=== PATIENT | male | born 1975 | race Caucasian/White ===

== ENCOUNTER → 2019-09-23 | Outpatient (CLI) | payer OTHER ==
[~2019-09-23] MED LIST: ATORVASTATIN CA40 MG PO; BRILINTA90 MG PO; CARVEDILOL3.125 MG PO; CHILDREN'S ASPI81 M1 PO; COLESTIPOL HCL1 G1 PO; COREG3.125 MG PO; EFFIENT10 MG PO; LISINOPRIL5 MG PO; NITROGLYCERIN0.4 MG SUBLING; OMEPRAZOLE40 MG PO; ZOFRAN ODT4 MG PO
== END ==
LOC: SJCVCIMAG 09-11 15:31
DX: I35.8 Other nonrheumatic aortic valve disorders (principal); I27.20 Pulmonary hypertension, unspecified; I11.9 Hypertensive heart disease without heart failure; I25.10 Atherosclerotic heart disease of native coronary artery without angina pectoris; I25.2 Old myocardial infarction; Z72.0 Tobacco use; Z95.5 Presence of coronary angioplasty implant and graft

== ENCOUNTER → 2020-08-22 | Outpatient (CLI) | payer OTHER | LOC: SJCVCIMAG 08-08 10:17 | PROVIDERS: ATTEND Internal Medicine Cardiovascular Disease | DX: Z01.818 Encounter for other preprocedural examination (principal); I25.10 Atherosclerotic heart disease of native coronary artery without angina pectoris; M79.89 Other specified soft tissue disorders; M79.661 Pain in right lower leg; M79.662 Pain in left lower leg; E78.5 Hyperlipidemia, unspecified; I10 Essential (primary) hypertension; E66.9 Obesity, unspecified; F17.200 Nicotine dependence, unspecified, uncomplicated; Z79.899 Other long term (current) drug therapy ==

== ENCOUNTER → 2020-11-11 | Outpatient (CLI) | payer OTHER ==
[~2020-11-11] MED LIST changes: +CARVEDILOL6.25 M1 PO; +CLOPIDOGREL75 MG PO; +LISINOPRIL10 MG PO
== END ==
LOC: LAB 10:19
PROVIDERS: ATTEND Surgery
DX: Z01.812 Encounter for preprocedural laboratory examination (principal); Z20.822 Contact with and (suspected) exposure to COVID-19

== ENCOUNTER 2020-11-16 06:11 | Day surgery (SDC) | payer OTHER ==
[~2020-11-16] VITALS: Ht 177.8 cm; Wt 157.4 kg
--- NOTE | ~2020-11-16 | O ---
[facility] [place] [address] OPERATIVE REPORT Name: SHERI TEIXEIRA Room #: 150-2 [facility].#: [id number] Admission: 11/16/20 Attend Phys: Ryan Feldman MD Discharge: Date of : 79 Report #: [id number] THIS REPORT FOR: cc: Griffin Cisneros,Ryan Marquis MD ~ DATE OF SERVICE: 11/16/2020 PREOPERATIVE DIAGNOSIS: Umbilical hernia. POSTOPERATIVE DIAGNOSIS: Umbilical hernia. OPERATIVE PROCEDURE DONE: Laparoscopic repair of umbilical hernia with mesh. OPERATING SURGEON: Dr. Ryan Feldman. 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 INDICATIONS FOR THE PROCEDURE: The patient is a 45-year-old male who presented with complaints of swelling in the umbilical region. Clinically, was noted to have a reducible umbilical hernia. The patient was advised laparoscopic repair of the same. DESCRIPTION OF PROCEDURE: After explaining to the patient in detail and informed consent was obtained, the patient was identified in the preoperative holding area. The patient was transferred to the operating room and was placed in supine position. Sequential compressive devices were placed for DVT prophylaxis. Preoperative antibiotics were given. After induction of anesthesia, the abdomen was prepped and draped in a sterile fashion through a left upper quadrant 1 cm incision and using Optiview technique, peritoneal cavity was entered and pneumoperitoneum was created. Thereafter, under direct vision, another 10 mm trocar was placed in the left flank and another 5 mm trocar was placed in the left lower quadrant region. On initial inspection, the patient was noted to have a small 2 cm sized umbilical hernia with omentum within its content. I gently reduced the omentum from the hernial cavity. I then dissected off the preperitoneal fat from the surrounding region. This fat was then subsequently retrieved with an EndoCatch. I then placed a 9 cm Symbotex mesh. This was initially hydrated and the [place]-Efe suture was placed in the center of the mesh and the adherent surface. Mesh was then introduced into the abdominal cavity. Mesh was then anchored onto the hernial site approximating the hernial defect measured then tacked circumferentially at 1 cm intervals using SecureStrap. Once this was completed, I noted that one of the left lateral edge was very close just had only 2 cm overlap. Therefore, I used another 12 cm sized Symbotex mesh, placed a suture in the middle on the adherent surface. The mesh was then hydrated and was introduced into the abdominal [address] [address] OPERATIVE REPORT Name: TEIXEIRASHERI Room #: 150-2 [facility]..#: [id number] Admission: 11/16/20 Attend Phys: Ryan Feldman MD Discharge: Date of : 79 Report #: [id number] cavity. The mesh was then anchored onto the anterior abdominal wall and was tacked circumferentially at 1 cm intervals using SecureStrap. The abdomen was then deflated. Absolute hemostasis was ensured. The incisions were then closed with 4-0 Monocryl. Dermabond was applied. The patient was stable at the end of the procedure. The patient was awoken from anesthesia and was transferred to the recovery room in stable condition. ESTIMATED BLOOD LOSS: Minimal. CONDITION OF THE PATIENT: Stable. FLUIDS GIVEN: Per anesthesia notes. SPECIMEN SENT: None. COMPLICATIONS: None. ANESTHESIA: General anesthesia. By: [id number] Ryan Feldman MD /nt
[2020-11-16 06:40] VITALS: BP 137/72
[2020-11-16] MEDS ORDERED: NORCO5 PO (09:47)
[2020-11-16 10:10] VITALS: BP 137/72
== END 2020-11-16 09:53 | disposition home or self-care (01) ==
LOC: OR 06:11 → TBA 06:11 → OR 09:53
PROVIDERS: ATTEND Surgery
DX: K42.9 Umbilical hernia without obstruction or gangrene (principal); R19.05 Periumbilic swelling, mass or lump; I10 Essential (primary) hypertension; E78.5 Hyperlipidemia, unspecified; I25.2 Old myocardial infarction; K21.9 Gastro-esophageal reflux disease without esophagitis; F17.210 Nicotine dependence, cigarettes, uncomplicated; Z98.890 Other specified postprocedural states; Z79.899 Other long term (current) drug therapy; Z79.891 Long term (current) use of opiate analgesic; Z90.49 Acquired absence of other specified parts of digestive tract; Z87.19 Personal history of other diseases of the digestive system; Z88.0 Allergy status to penicillin; Z79.82 Long term (current) use of aspirin
CPT/HCPCS: 50010; 50101; 50386; 50555; 50984; 52265; 52266; 54022; 54118; 56526; 56530; 57009; 57010; 57092; 57257; 58574; 62110; 62900; 70005

== ENCOUNTER → 2020-12-19 | Outpatient (CLI) | payer OTHER ==
[~2020-12-19] VITALS: Ht 177.8 cm; Wt 158.8 kg
[~2020-12-19] MED LIST changes: +NORCO5 PO
[2020-12-19 08:41] VITALS: BP 120/81
--- NOTE | 2020-12-19 13:32 | CATHLAB ---
[facility] [place] [address] INVASIVE PROCEDURE REPORT Name: TEIXEIRASHERI Room #: REG [facility].#: [id number] Admission: 12/19/20 Attend Phys: Mayank Ornelas MD Discharge: Date of : 79 Report #: [id number] THIS REPORT FOR: cc: Griffin Cisneros Brad DO Park, Jin S. MD ~ APPROVED REPORT Study performed: 12/19/2020 10:32:23 Patient Details Patient Status: Out-Patient Room #: The patient is a 45 year-old male Event Personnel Mayank Ornelas Set Off Press Operator, Rajwinder Heath Ramos, Dexter RN RN, Mary Lazaro RTR, ANIMAL CARETAKER Monitor Procedures Performed Art Access - R radial artery Left Heart Cath w/or w/o Coronaries [id number] [facility] [id number] Initial Mod Sed Same Phys/QHP Gr5y [id number] Mod Sed Same Phys/QHP Ea [id number] Hemostasis with Hemoband Indication Dyspnea, Positive stress test Risk Factors Hypercholesterolemia, Coronary Artery DiseaseHypertension, Tobacco History () Previous Procedures/Diagnoses Previous PCI, Previous [place] Procedure Narrative The Right Wrist^ was infiltrated with 1% Lidocaine subcutaneous anesthesia. A 6FR TRANSRADIAL GLIDESHEATH W/ NEEDLE #408672 sheath was inserted into the Right Radial Artery^. Coronary angiography was performed using coronary diagnostic catheters. The right coronary system was accessed and visualized with a JR4 catheter. The left coronary system was accessed and visualized with a JL3.5 catheter. The left ventricle was accessed and visualized with a angled pigtail catheter. Left ventricular/Aortic Valve gradient assessed via catheter pullback. Left ventriculogram was performed in 30 degree [facility] [address] [place] [address] INVASIVE PROCEDURE REPORT Name: SHERI TEIXEIRA Room #: REG [facility]#: [id number] Admission: 12/19/20 Attend Phys: Mayank Ornelas MD Discharge: Date of : 79 Report #: [id number] projection. Closure device was deployed with a Fr VASC BAND XL 29CM #[id number]. The patient tolerated the procedure well and there were no complications associated with the procedure. There was no hematoma. Intraoperative Conscious Sedation Sedation start time: 11:26 Case end Time: 12:04 Fentanyl 100 mcg Versed 1 mg Fluoro Time: 7.60 minutes Dose: DAP 50585.30 cGycm2 2111 mGy Contrast Type and Amount: Omnipaque 70 ml Coronary Angiography The patient's coronary anatomy is right dominant. Diagnostic Cath Left Main The left main artery is a large-caliber vessel, appears angiographically normal. LAD The LAD is a moderate-sized caliber vessel, traverses the anterior wall and wraps around the apex. There is mild disease in the midsegment, 30%. Diagonal 1 This is a small to moderate-sized caliber vessel, patent with no flow-limiting lesions. Circumflex The left circumflex artery is a moderate-sized caliber vessel, with a mild stenosis in the proximal segment, 30%. OM1 This is a moderate-sized caliber vessel, patent with no flow-limiting lesions. OM2 This is a small to moderate-sized caliber vessel, patent with no flow-limiting lesions. Right Coronary There are multiple overlapping stents beginning from the ostium and extending out to the mid segment. The stented area is patent with mild restenosis, 20%. R PDA This is a moderate-sized caliber vessel, patent with no flow-limiting lesions. RPLV This is a small to moderate-sized caliber vessel, patent with no flow-limiting lesions. Left Ventriculography The left ventricle is normal in size with Diminished contractility. The left ventricular ejection fraction is estimated to be 40-45%. Left ventricular wall motion abnormalities are present. There is hypokinesis of the basal to mid inferior segment. Hemodynamics [facility] [address] [place] [address] INVASIVE PROCEDURE REPORT Name: SHERI TEIXEIRA Room #: REG [facility]#: [id number] Admission: 12/19/20 Attend Phys: Mayank Ornelas MD Discharge: Date of : 79 Report #: [id number] The aortic pressure is 99/62 mmHg with a mean of 79 mmHg. The left ventricular pressure is 103/6 mmHg with a mean of mmHg. The left ventricular end diastolic pressure is 13 mmHg. Conclusion 1. There are patent stents in the RCA with mild restenosis. 2. There is mild disease in the LCx artery and LAD. 3. There is mild to moderate segmental LV dysfunction. 4. Recommend risk factor management. <ELECTRONICALLY SIGNED> By: Mayank Ornelas MD 12/19/20 1331 133 133 Mayank Ornelas MD /INF
== END | disposition home or self-care (01) ==
LOC: CATH 08:21
PROVIDERS: ATTEND Internal Medicine Cardiovascular Disease
DX: R94.39 Abnormal result of other cardiovascular function study (principal); I25.10 Atherosclerotic heart disease of native coronary artery without angina pectoris; T82.855A Stenosis of coronary artery stent, initial encounter; R06.00 Dyspnea, unspecified; I10 Essential (primary) hypertension; I25.2 Old myocardial infarction; E78.00 Pure hypercholesterolemia, unspecified; F17.210 Nicotine dependence, cigarettes, uncomplicated; Z98.890 Other specified postprocedural states; Z79.899 Other long term (current) drug therapy; Z88.0 Allergy status to penicillin; Y83.8 Other surgical procedures as the cause of abnormal reaction of the patient, or of later complication, without mention of misadventure at the time of the procedure